=== PATIENT | female | born 1990 | race Caucasian/White ===

== ENCOUNTER 2023-12-28 10:04 | Outpatient (CLI) | payer BC, SELFPAY ==
[2023-12-28 10:29] VITALS: BP 139/75; PULSE 67
[2023-12-28 10:31] VITALS: BP 133/72; PULSE 62
[2023-12-28 10:33] LABS: Basophils Percent Auto 0.1 % (0.2-1.2); Eosinophils Percent Auto 0.3 % (0-4.4); Hematocrit 33.8 % (37.0-47.0); Immature Granulocyte Absolute 0.03 K/mm3 (0.00-0.031); Immature Granulocyte Percent A 0.3 % (0-0.5); Immature Platelet Fraction Pct 17.2 % (0.9-11.2); Lymphocytes Absolute Auto 2.34 K/mm3 (0.9-3.2); Lymphocytes Percent Auto 24.7 % (18.3-44.2); Mean Corpuscular HGB Conc 32.5 g/dl (32-36); Mean Corpuscular Hemoglobin 26.8 pg (26-34); Mean Corpuscular Volume 82.4 fl (80-100); Mean Platelet Volume 13.1 fl (7.4-10.4); Monocytes Absolute Auto 0.6 K/mm3 (0.1-0.6); Monocytes Percent Auto 6.1 % (2.6-8.5); Neutrophils Absolute Auto 6.5 K/mm3 (1.3-6.7); Neutrophils Percent Auto 68.5 % (45.5-73.1); Platelet Count Result 163 k/mm3 (150-375); Red Cell Distribution Width 15.1 % (11.5-14.5); White Blood Count 9.5 K/mm3 (4.5-10.0)
[2023-12-28 10:34] LABS: Appearance Urine Clear (Clear); Bilirubin Urine Negative (Negative); Blood Urine Negative (Negative); Color Urine Yellow (Yellow); Glucose Urine UA Negative (Negative); Ketones Urine Negative (Negative); Leukocyte Esterase Ur Negative LEU/UL (Negative); Nitrate Urine Negative (Negative); Protein Urine Negative (Negative); Specific Grav Ur 1.009 (1.001-1.035); Urobilinogen Urine 0.2 mg/dL (<2.0); pH Urine 6.5 (5.0-9.0)
[2023-12-28 10:38] LABS: Add Urine Microscopic? NO
[2023-12-28 10:40] LABS: Creatinine Urine 48.3 mg/dL; Total Protein Urine Random 9 mg/dL; Ur Ttl Prot Creatinine Ratio 0.19 mg/mg (0-0.20)
[2023-12-28 10:46] VITALS: BP 136/72; PULSE 69
[2023-12-28 10:57] LABS: Alanine Aminotransferase 13 U/L (6-35); Albumin Level 3.3 g/dL (3.5-5.1); Alkaline Phosphatase 86 U/L (38-126); Anion Gap 6 mmol/L (8-16); Aspartate Amino Transferase 17 U/L (14-36); Bilirubin,Total 0.2 mg/dL (0.2-1.3); Blood Urea Nitrogen 7 mg/dL (7-17); Calcium 9.2 mg/dL (8.4-10.2); Carbon Dioxide 21 mmol/L (22-30); Chloride 108 mmol/L (98-107); Estimated Glomerular Filt Rate > 60; Glucose 71 mg/dL (65-110); Potassium 3.7 mmol/L (3.4-5.0); Sodium 135 mmol/L (137-145); Uric Acid 5.5 mg/dL (2.5-7.5)
[2023-12-28 11:01] VITALS: BP 129/75; PULSE 73
[2023-12-28] MEDS: ACETAMINOPHEN 325 MG TABLET 650 MG PO (11:13)
[2023-12-28 11:14] VITALS: BP 133/72; PULSE 62; BMI 47.9
--- NOTE | 2023-12-28 11:19 | PC.NURSE ---
1105: RN informed CNM of patient's complains of right upper quadrant pain, blurred vision, and a headache relieved by Tylenol. RN reported lab results and blood pressures to CNM as well as Category one FHT. Orders to give Tylenol for patient's headache and discharge patient home with instructions on when to return to the hospital.
== END 2023-12-28 13:30 | disposition home or self-care (01) ==
LOC: ANHOBOP 10:08 → ANHOBPP 10:08
PROVIDERS: Visit Provider Advanced Practice Midwife
DX: O13.9 Gestational [pregnancy-induced] hypertension without significant proteinuria, unspecified trimester (principal); Z3A.00 Weeks of gestation of pregnancy not specified
CPT/HCPCS: 36415; 59025; 80053; 81003; 82570; 84156; 84550; 85025; 85055; 99199; A9270

== ENCOUNTER 2024-01-04 10:26 | Outpatient (CLI) | payer BC, SELFPAY ==
[2024-01-04] VITALS (41 sets, daily range): BP systolic 110–173; BP diastolic 67–140; PULSE 70–115; TEMP 36.8; BMI 49.1
--- NOTE | 2024-01-04 11:00 | OBADM ---
This patient, Lexi Best, admitted to the OB room OB Post 116 for observation. Patient/family oriented to hospital policies and general routines including ID bracelet, bed and alarms, visiting hours, pain management, procedures, bathroom and other care routines, personal items, smoking policy, room service/diet, and visiting hours. Patient/Family are encouraged to report perceived risks to care and to ask questions if they do not understand what they are told or what they should do.
[2024-01-04 11:38] LABS: Appearance Urine Clear (Clear); Bilirubin Urine Negative (Negative); Blood Urine Negative (Negative); Color Urine Yellow (Yellow); Glucose Urine UA Negative (Negative); Ketones Urine Negative (Negative); Leukocyte Esterase Ur Negative LEU/UL (Negative); Nitrate Urine Negative (Negative); Protein Urine Negative (Negative); Specific Grav Ur 1.013 (1.001-1.035)
[2024-01-04 11:40] LABS: Basophils Percent Auto 0.1 % (0.2-1.2); Eosinophils Absolute Auto 0.1 K/mm3 (0-0.3); Eosinophils Percent Auto 0.6 % (0-4.4); Hematocrit 34.5 % (37.0-47.0); Hemoglobin 10.9 g/dL (12.0-15.0); Immature Granulocyte Absolute 0.03 K/mm3 (0.00-0.031); Immature Granulocyte Percent A 0.3 % (0-0.5); Immature Platelet Fraction Pct 19.5 % (0.9-11.2); Lymphocytes Absolute Auto 1.71 K/mm3 (0.9-3.2); Lymphocytes Percent Auto 19.6 % (18.3-44.2); Mean Corpuscular HGB Conc 31.6 g/dl (32-36); Mean Corpuscular Hemoglobin 26.5 pg (26-34); Mean Corpuscular Volume 83.7 fl (80-100); Mean Platelet Volume 13.1 fl (7.4-10.4); Monocytes Absolute Auto 0.6 K/mm3 (0.1-0.6); Monocytes Percent Auto 6.7 % (2.6-8.5); Neutrophils Absolute Auto 6.3 K/mm3 (1.3-6.7); Neutrophils Percent Auto 72.7 % (45.5-73.1); Platelet Count Result 159 k/mm3 (150-375); Red Blood Count 4.12 M/mm3 (4.2-5.4); Red Cell Distribution Width 15.3 % (11.5-14.5); White Blood Count 8.7 K/mm3 (4.5-10.0)
[2024-01-04 11:42] LABS: Add Urine Microscopic? NO
--- NOTE | 2024-01-04 11:51 | PC.NURSE ---
Hedy Cruz notified of BP's, orders received.
[2024-01-04 11:55] LABS: Alanine Aminotransferase 13 U/L (6-35); Albumin Level 3.4 g/dL (3.5-5.1); Alkaline Phosphatase 98 U/L (38-126); Anion Gap 6 mmol/L (8-16); Aspartate Amino Transferase 17 U/L (14-36); Bilirubin,Total 0.4 mg/dL (0.2-1.3); Blood Urea Nitrogen 5 mg/dL (7-17); Calcium 9.1 mg/dL (8.4-10.2); Carbon Dioxide 23 mmol/L (22-30); Chloride 107 mmol/L (98-107); Creatinine Urine 73.2 mg/dL; Estimated Glomerular Filt Rate > 60; Glucose 73 mg/dL (65-110); Potassium 3.9 mmol/L (3.4-5.0); Sodium 136 mmol/L (137-145); Total Protein Urine Random 8 mg/dL; Ur Ttl Prot Creatinine Ratio 0.11 mg/mg (0-0.20)
[2024-01-04] MEDS: LABETALOL HCL 100 MG TABLET 200 MG PO (12:08)
--- NOTE | 2024-01-04 14:00 | PC.NURSE ---
S Anthony called in and BP's reviewed. Orders received.
[2024-01-04] MEDS: LABETALOL HCL INJ 100 MG/20 ML VIAL 20 MG IV PUSH (15:04)
--- NOTE | 2024-01-04 16:06 | PC.NURSE ---
Hedy Cruz called in and BP's reviewed, orders received.
[2024-01-04] MEDS: LABETALOL HCL 100 MG TABLET PO (16:22)
[2024-01-04 16:27] LABS: Glucose Point of Care 195 mg/dl (65-105)
--- NOTE | 2024-01-04 16:27 | PC.NURSE ---
Accu check 195, after checking glucose patient states that she ate the second half of her subway sandwich about 30 minutes ago. Will recheck sugar in 30 minutes.
[2024-01-04 17:04] LABS: Glucose Point of Care 179 mg/dl (65-105)
--- NOTE | 2024-01-04 18:04 | PM.IMHP ---
H&P: HPI History of Present Illness Date/Time: 01/04/24 18:04 Chief Complaint: at 34.6 weeks gestation, presented to office with elevated blood pressure, occasional romo, denies epigastric pain. IVF , complicated by depression, taking prozac daily, ADD adderall weaning in third trimester, GDMA-2, 55 units nph at night, obesity with hx bariatric procedure. pt currently resting comfortably. Review of Systems Review of Systems: All systems reviewed & are unremarkable except as noted in HPI and below PMFSH Family History Family History (System 01/04/24 @ 12:00 by Nalini Doherty) Other Diabetes mellitus Family history of malignant neoplasm Hypertension Social History Social History (System 01/04/24 @ 12:00 by Nalini Doherty) Smoking status: Never smoker Alcohol intake: current Meds Home Medications and Allergies Home Medications Medication Instructions Recorded Confirmed Type Novolin N FlexPen 55 units subcut HS 12/24/23 12/24/23 History dextroamphetamine-amphetamine 10 10 mg PO DAILY PRN Concentration 12/24/23 12/24/23 History mg tablet (Adderall) doxylamine succinate 25 mg tablet 25 mg PO HS PRN Sleep 12/24/23 12/24/23 History (Unisom (doxylamine)) ferrous sulfate 142 mg (45 mg 142 mg PO DAILY 12/24/23 12/24/23 History iron) tablet,extended release fluoxetine 10 mg tablet 10 mg PO DAILY 12/24/23 12/24/23 History vit no.95-ferrous 1 tablet PO DAILY 12/24/23 12/24/23 History fumarate 28 mg-folic acid 800 mcg tablet () pyridoxine (vitamin B6) 25 mg 25 mg PO DAILY 12/24/23 12/24/23 History tablet (Vitamin B-6) Allergies Allergy/AdvReac Type Severity Reaction Status Date / Time cephalexin Allergy Intermediate Rash Verified 01/04/24 12:00 Vital Signs Vital Signs - 24 hr 01/04/24 11:01 01/04/24 11:31 01/04/24 11:46 Pulse Rate 75 70 77 Blood Pressure 150/87 H 163/94 H 156/85 H 01/04/24 12:01 01/04/24 12:16 01/04/24 12:31 Pulse Rate 71 74 80 Blood Pressure 150/83 H 149/87 H 151/87 H 01/04/24 12:46 01/04/24 13:01 01/04/24 13:16 Pulse Rate 82 84 93 Blood Pressure 151/76 H 148/80 H 157/94 H 01/04/24 13:31 01/04/24 13:46 01/04/24 14:01 Pulse Rate 91 80 86 Blood Pressure 158/89 H 160/83 H 155/78 H 01/04/24 14:16 01/04/24 15:08 01/04/24 15:11 Pulse Rate 91 115 H 109 H Blood Pressure 173/140 H 142/73 H 145/85 H 01/04/24 15:21 01/04/24 15:31 01/04/24 15:41 Pulse Rate 112 H 107 H 99 Blood Pressure 143/81 H 155/81 H 152/85 H 01/04/24 15:51 01/04/24 16:01 01/04/24 16:11 Pulse Rate 92 89 92 Blood Pressure 151/88 H 154/92 H 147/94 H 01/04/24 16:21 01/04/24 16:31 01/04/24 16:41 Pulse Rate 105 H 103 H 102 H Blood Pressure 160/88 H 150/70 H 153/81 H 01/04/24 16:51 01/04/24 17:01 01/04/24 17:11 Pulse Rate 100 97 88 Blood Pressure 151/77 H 155/81 H 144/78 H 01/04/24 17:21 01/04/24 17:31 01/04/24 17:41 Pulse Rate 88 89 85 Blood Pressure 141/78 H 141/73 H 144/78 H 01/04/24 17:51 01/04/24 18:02 01/04/24 15:04 Pulse Rate 88 83 91 Blood Pressure 140/79 153/75 H 01/04/24 16:22 Pulse Rate 105 H Blood Pressure Exam Const: General: cooperative, healthy appearing and comfortable Chest: Chest palpation & inspection: normal inspection of the chest Resp: Effort & Inspection: normal respiratory effort Cardio: Rate: regular rate GI: Other: soft, gravid Skin: General skin exam: normal color Neuro: General: patient oriented x3 Extrem: Right lower extremity: edema Details: 2+ Left lower extremity: edema Details: 2+ Psych: Appearance: grossly normal H&P: Results Labs Labs: Short CBC 01/04/24 Range/Units 11:07 WBC 8.7 (4.5-10.0) K/mm3 Hgb 10.9 L (12.0-15.0) g/dL Hct 34.5 L (37.0-47.0) % Plt Count 159 (150-375) k/mm3 BMP 01/04/24 11:07 Sodium 136 L Potassium 3.9 Chloride 107 Carbon Dioxide 23 BUN 5 L Creatinine 0.50 L Glucose 73
[2024-01-04] MEDS: NIFEdipine 30 MG TAB.ER.24 PO (20:46)
[2024-01-04] MEDS: INSULIN HUMAN NPH (*BKC) 100 UNITS/ML 55 UNITS SUB-Q (20:46)
[2024-01-04] MEDS: ACETAMINOPHEN 500 MG TABLET 1000 MG PO (20:53)
[2024-01-04 20:54] LABS: Glucose Point of Care 79 mg/dl (65-105)
--- NOTE | 2024-01-04 21:49 | PC.NURSE ---
Spoke with OTF Yanez at 0947 regarding patient's last BP of 152/85 and recent NST with variables noted. Orders received to keep patient on monitor throughout the night. BP check q1hr.
[2024-01-05] VITALS (22 sets, daily range): BP systolic 129–158; BP diastolic 64–90; PULSE 82–97; RESP 16–18; TEMP 36.1–36.5; O2SAT 99–100
[2024-01-05] MEDS: ACETAMINOPHEN 500 MG TABLET 1000 MG PO ×3 (04:12→17:13)
[2024-01-05 05:32] LABS: Hematocrit 34.8 % (37.0-47.0); Immature Platelet Fraction Pct 19.7 % (0.9-11.2); Mean Corpuscular HGB Conc 31.6 g/dl (32-36); Mean Corpuscular Hemoglobin 26.7 pg (26-34); Mean Corpuscular Volume 84.5 fl (80-100); Mean Platelet Volume 12.7 fl (7.4-10.4); Platelet Count Result 156 k/mm3 (150-375); Red Blood Count 4.12 M/mm3 (4.2-5.4); Red Cell Distribution Width 15.4 % (11.5-14.5); White Blood Count 7.6 K/mm3 (4.5-10.0)
[2024-01-05 05:50] LABS: Alanine Aminotransferase 12 U/L (6-35); Albumin Level 3.5 g/dL (3.5-5.1); Alkaline Phosphatase 89 U/L (38-126); Anion Gap 5 mmol/L (8-16); Aspartate Amino Transferase 18 U/L (14-36); Bilirubin,Total 0.4 mg/dL (0.2-1.3); Blood Urea Nitrogen 6 mg/dL (7-17); Calcium 9.4 mg/dL (8.4-10.2); Carbon Dioxide 24 mmol/L (22-30); Chloride 108 mmol/L (98-107); Estimated CRCL calculation 208 ml/min; Estimated Glomerular Filt Rate > 60; Glucose 74 mg/dL (65-110); Potassium 3.6 mmol/L (3.4-5.0); Sodium 137 mmol/L (137-145); Uric Acid 5.3 mg/dL (2.5-7.5)
--- NOTE | 2024-01-05 07:58 | PC.NURSE ---
Dr. Aguilar at nurses station, reviewed tracing, BPs and labs. Plans to continue watching patient today to see how pt responds to procardia/labetalol regimen.
--- NOTE | 2024-01-05 08:13 | PM.OBPNVD ---
OB - PN: Subj Subjective Date/time seen: 01/05/24 08:13 33-year-old 1 at 35 weeks gestation with gestational diabetes and gestational hypertension. Patient presented for evaluation of elevated blood pressures and had some severe range blood pressures. The values were questioned. One value has some very atypical numbers. The morphology of her arm his unique and hard to get consistent blood pressures. There is a concern about severe preeclampsia given the elevated blood pressures on 2 occasions. There is question of their ability. Blood pressure been controlled. We have administered oral medications and blood pressures have been elevated but not severe range over the last 18 hours approximately. we are going to continue to monitor her today in the hospital and consider discharge later. At this time she is just gestational hypertensive likely. Her protein creatinine ratio was normal. OB - PN: Obj Data Labs 01/05/24 05:09 01/05/24 05:09 Labs: Laboratory Results - last 24 hr 01/04/24 01/04/24 01/04/24 11:07 16:24 17:01 WBC 8.7 RBC 4.12 L Hgb 10.9 L Hct 34.5 L MCV 83.7 MCH 26.5 MCHC 31.6 L RDW 15.3 H Plt Count 159 MPV 13.1 H Immature Gran % (Auto) 0.3 Neut % (Auto) 72.7 Lymph % (Auto) 19.6 Placer % (Auto) 6.7 Eos % (Auto) 0.6 Baso % (Auto) 0.1 L Lymph # (Auto) 1.71 Placer # (Auto) 0.6 Eos # (Auto) 0.1 Baso # (Auto) 0.0 Abs Immat Gran (auto) 0.03 Absolute Neuts (auto) 6.3 Absolute Nucleated RBC 0.0 Nucleated RBC % 0.0 % Immature Plt Fraction 19.5 H Sodium 136 L Potassium 3.9 Chloride 107 Carbon Dioxide 23 Anion Gap 6 L BUN 5 L Creatinine 0.50 L Estim Creat Clear Calc Not Reportable Estimated GFR > 60 Glucose 73 POC Capillary Glucose 195 H 179 H Uric Acid 5.0 Calcium 9.1 Total Bilirubin 0.4 AST 17 ALT 13 Alkaline Phosphatase 98 Total Protein 6.0 L Albumin 3.4 L Urine Color Yellow Urine Appearance Clear Urine pH 8.0 Ur Specific [place] 1.013 Urine Protein Negative Urine Glucose (UA) Negative Urine Ketones Negative Ur Blood (Man) Negative Urine Nitrate Negative Urine Bilirubin Negative Urine Urobilinogen 1.0 Leukocyte Esterase Rfl Negative U Random Total Protein 8 Urine Creatinine 73.2 Protein/Creat Ratio 2 0.11 01/04/24 01/05/24 20:44 05:09 WBC 7.6 RBC 4.12 L Hgb 11.0 L Hct 34.8 L MCV 84.5 MCH 26.7 MCHC 31.6 L RDW 15.4 H Plt Count 156 MPV 12.7 H Immature Gran % (Auto) Neut % (Auto) Lymph % (Auto) Placer % (Auto) Eos % (Auto) Baso % (Auto) Lymph # (Auto) Placer # (Auto) Eos # (Auto) Baso # (Auto) Abs Immat Gran (auto) Absolute Neuts (auto) Absolute Nucleated RBC Nucleated RBC % % Immature Plt Fraction 19.7 H Sodium 137 Potassium 3.6 Chloride 108 H Carbon Dioxide 24 Anion Gap 5 L BUN 6 L Creatinine 0.50 L Estim Creat Clear Calc 208 Estimated GFR > 60 Glucose 74 POC Capillary Glucose 79 Uric Acid 5.3 Calcium 9.4 Total Bilirubin 0.4 AST 18 ALT 12 Alkaline Phosphatase 89 Total Protein 6.0 L Albumin 3.5 Urine Color Urine Appearance Urine pH Ur Specific [place] Urine Protein Urine Glucose (UA) Urine Ketones Ur Blood (Man) Urine Nitrate Urine Bilirubin Urine Urobilinogen Leukocyte Esterase Rfl U Random Total Protein Urine Creatinine Protein/Creat Ratio 2 OB - PN A/P Assessment and Plan (1) Depression: Code(s): F32.A - Depression, unspecified Status: Acute (2) Gestational diabetes: Code(s): O24.419 - Gestational diabetes mellitus in , unspecified control Status: Acute (3) Obesity: Code(s): E66.9 - Obesity, unspecified Status: Acute (4) Gestational hypertension without significant proteinuria during
[2024-01-05 08:30] LABS: Glucose Point of Care 63 mg/dl (65-105)
[2024-01-05] MEDS: LABETALOL HCL 100 MG TABLET 300 MG PO (08:38)
[2024-01-05] MEDS: NIFEdipine 30 MG TAB.ER.24 PO (08:39)
[2024-01-05 09:45] LABS: Glucose Point of Care 123 mg/dl (65-105)
[2024-01-05 12:58] LABS: Glucose Point of Care 111 mg/dl (65-105)
--- NOTE | 2024-01-05 16:55 | PC.NURSE ---
Spoke with Dr. Aguilar at nurses station. Update given on pt status, BP, and headache. MD would like to try caffeine medication, orders received and confirmed. If headache is relieved, pt may go home. Suggesting excedrin tension headache OTC for patient to take at home. RN repeated info back to confirm.
[2024-01-05] MEDS: CAFFEINE 200 MG TABLET PO (17:13)
--- NOTE | 2024-01-05 17:49 | PC.NURSE ---
Pt states she feels much better after tylenol/caffeine combo, would like to go home.
== END 2024-01-05 18:05 ==
LOC: ANHOBOP 10:38 → ANHOBPP 10:39
PROVIDERS: Visit Provider Advanced Practice Midwife
DX: O13.3 Gestational [pregnancy-induced] hypertension without significant proteinuria, third trimester (principal); E66.9 Obesity, unspecified; O24.419 Gestational diabetes mellitus in pregnancy, unspecified control; Z31.83 Encounter for assisted reproductive fertility procedure cycle; F32.A Depression, unspecified; Z3A.00 Weeks of gestation of pregnancy not specified
CPT/HCPCS: 36415; 59025; 80053; 81003; 82570; 82948; 84156; 84550; 85025; 85027; 85055; 96374; 99199; A9270; G0378; G0379; J1815

== ENCOUNTER 2024-01-11 10:23 | Outpatient (CLI) | payer BC, SELFPAY ==
[2024-01-11] VITALS (14 sets, daily range): BP systolic 134–159; BP diastolic 84–107; PULSE 71–115; O2SAT 95–99
[2024-01-11 11:05] LABS: Basophils Percent Auto 0.2 % (0.2-1.2); Eosinophils Percent Auto 0.2 % (0-4.4); Hematocrit 34.8 % (37.0-47.0); Hemoglobin 11.1 g/dL (12.0-15.0); Immature Granulocyte Absolute 0.02 K/mm3 (0.00-0.031); Immature Granulocyte Percent A 0.2 % (0-0.5); Immature Platelet Fraction Pct 17.5 % (0.9-11.2); Lymphocytes Percent Auto 19.4 % (18.3-44.2); Mean Corpuscular HGB Conc 31.9 g/dl (32-36); Mean Corpuscular Hemoglobin 26.9 pg (26-34); Mean Corpuscular Volume 84.3 fl (80-100); Mean Platelet Volume 13.3 fl (7.4-10.4); Monocytes Absolute Auto 0.7 K/mm3 (0.1-0.6); Monocytes Percent Auto 6.5 % (2.6-8.5); Neutrophils Absolute Auto 7.6 K/mm3 (1.3-6.7); Neutrophils Percent Auto 73.5 % (45.5-73.1); Platelet Count Result 193 k/mm3 (150-375); Red Blood Count 4.13 M/mm3 (4.2-5.4); Red Cell Distribution Width 15.4 % (11.5-14.5); White Blood Count 10.3 K/mm3 (4.5-10.0)
[2024-01-11 11:06] LABS: Creatinine Urine 79.9 mg/dL; Total Protein Urine Random 11 mg/dL; Ur Ttl Prot Creatinine Ratio 0.14 mg/mg (0-0.20)
[2024-01-11 11:07] LABS: Appearance Urine Cloudy (Clear); Bacteria Urine None Seen /hpf; Bilirubin Urine Negative (Negative); Blood Urine Negative (Negative); Color Urine Yellow (Yellow); Glucose Urine UA Negative (Negative); Ketones Urine Negative (Negative); Leukocyte Esterase Ur Negative LEU/UL (Negative); Nitrate Urine Negative (Negative); Non Pathogenic Casts 0-2; Protein Urine Negative (Negative); RBC Urine 0-2 /hpf (0-2); Specific Grav Ur 1.013 (1.001-1.035); Squamous Epithelial Cell Urine Moderate /hpf (Few); WBC Urine 0-5 /hpf; pH Urine 6.5 (5.0-9.0)
[2024-01-11 11:08] LABS: Add Urine Microscopic? YES
[2024-01-11 11:14] LABS: Alanine Aminotransferase 14 U/L (6-35); Albumin Level 3.5 g/dL (3.5-5.1); Alkaline Phosphatase 97 U/L (38-126); Anion Gap 4 mmol/L (8-16); Aspartate Amino Transferase 18 U/L (14-36); Bilirubin,Total 0.4 mg/dL (0.2-1.3); Blood Urea Nitrogen 6 mg/dL (7-17); Calcium 9.4 mg/dL (8.4-10.2); Carbon Dioxide 21 mmol/L (22-30); Chloride 110 mmol/L (98-107); Estimated Glomerular Filt Rate > 60; Glucose 72 mg/dL (65-110); Potassium 4.2 mmol/L (3.4-5.0); Sodium 135 mmol/L (137-145); Uric Acid 5.8 mg/dL (2.5-7.5)
--- NOTE | 2024-01-11 11:26 | PC.NURSE ---
Called Melisa Crzu CNM to inform of BPs and lab results. JEEVAN verbalized understanding, states she will call back shortly.
[2024-01-11] MEDS: LABETALOL HCL 100 MG TABLET 300 MG PO (11:38)
--- NOTE | 2024-01-11 11:59 | PC.NURSE ---
pt called out stating she had blurry vision that came on abruptly along with some slight light-headedness. RN to report to provider shortly. Will check BG as well.
[2024-01-11 12:08] LABS: Glucose Point of Care 77 mg/dl (65-105)
--- NOTE | 2024-01-11 13:02 | PC.NURSE ---
This RN received call from Melisa Cruz CNM. RN informed CNM of blurry vision complaints correlating with low blood sugar. CNM verbalized understanding, states pt may go home on labetalol 300mg TID. RN repeated all orders back to confirm. No further orders given at this time.
== END 2024-01-11 13:20 | disposition home or self-care (01) ==
LOC: ANHOBOP 10:32 → ANHLDR 10:32
PROVIDERS: Visit Provider Advanced Practice Midwife
DX: O13.9 Gestational [pregnancy-induced] hypertension without significant proteinuria, unspecified trimester (principal); Z3A.00 Weeks of gestation of pregnancy not specified
CPT/HCPCS: 36415; 80053; 81001; 82570; 82948; 84156; 84550; 85025; 85055; 99199; A9270

== ENCOUNTER 2024-01-13 09:50 | Outpatient (CLI) | payer BC, SELFPAY ==
[2024-01-13 10:19] LABS: Eosinophils Percent Auto 0.3 % (0-4.4); Hematocrit 33.7 % (37.0-47.0); Immature Granulocyte Absolute 0.03 K/mm3 (0.00-0.031); Immature Granulocyte Percent A 0.3 % (0-0.5); Lymphocytes Absolute Auto 1.64 K/mm3 (0.9-3.2); Lymphocytes Percent Auto 16.6 % (18.3-44.2); Mean Corpuscular HGB Conc 32.6 g/dl (32-36); Mean Corpuscular Hemoglobin 27.3 pg (26-34); Mean Corpuscular Volume 83.6 fl (80-100); Monocytes Absolute Auto 0.6 K/mm3 (0.1-0.6); Monocytes Percent Auto 5.8 % (2.6-8.5); Neutrophils Absolute Auto 7.6 K/mm3 (1.3-6.7); Platelet Count Result 178 k/mm3 (150-375); Red Blood Count 4.03 M/mm3 (4.2-5.4); Red Cell Distribution Width 15.5 % (11.5-14.5); White Blood Count 9.9 K/mm3 (4.5-10.0)
[2024-01-13 10:21] VITALS: BP 129/76; PULSE 86
[2024-01-13 10:31] VITALS: BP 118/71; PULSE 93
[2024-01-13 10:34] LABS: Appearance Urine Cloudy (Clear); Bacteria Urine Rare /hpf; Bilirubin Urine Negative (Negative); Blood Urine Negative (Negative); Color Urine Dark Yellow (Yellow); Glucose Urine UA Negative (Negative); Ketones Urine Trace mg/dL (Negative); Leukocyte Esterase Ur Trace LEU/UL (Negative); Nitrate Urine Negative (Negative); Non Pathogenic Casts 0-2; Protein Urine 1+ mg/dL (Negative); RBC Urine 0-2 /hpf (0-2); Specific Grav Ur 1.031 (1.001-1.035); Squamous Epithelial Cell Urine Many /hpf (Few); WBC Urine 0-5 /hpf; pH Urine 5.5 (5.0-9.0)
[2024-01-13 10:35] LABS: Add Urine Microscopic? YES
[2024-01-13 10:38] LABS: Creatinine Urine 311.8 mg/dL; Total Protein Urine Random 9 mg/dL; Ur Ttl Prot Creatinine Ratio 0.03 mg/mg (0-0.20)
[2024-01-13 10:39] LABS: Alanine Aminotransferase 15 U/L (6-35); Albumin Level 3.5 g/dL (3.5-5.1); Alkaline Phosphatase 99 U/L (38-126); Anion Gap 8 mmol/L (8-16); Aspartate Amino Transferase 20 U/L (14-36); Bilirubin,Total 0.4 mg/dL (0.2-1.3); Blood Urea Nitrogen 11 mg/dL (7-17); Calcium 9.2 mg/dL (8.4-10.2); Carbon Dioxide 20 mmol/L (22-30); Chloride 107 mmol/L (98-107); Estimated Glomerular Filt Rate > 60; Glucose 104 mg/dL (65-110); Potassium 4.1 mmol/L (3.4-5.0); Sodium 135 mmol/L (137-145); Uric Acid 6.3 mg/dL (2.5-7.5)
[2024-01-13 10:45] VITALS: BP 130/71; PULSE 85
--- NOTE | 2024-01-13 10:48 | PC.NURSE ---
1048: RN phone CNM to inform her of patient's blood pressure, lab results, and FHT tracing. Orders to discharge patient home with preeclampsia precautions and instructions to come for her NST tomorrow.
[2024-01-13 10:57] VITALS: BP 117/71; PULSE 93
== END 2024-01-13 10:50 | disposition home or self-care (01) ==
LOC: ANHOBOP 09:55 → ANHOBPP 09:57
PROVIDERS: Visit Provider Advanced Practice Midwife
DX: O13.9 Gestational [pregnancy-induced] hypertension without significant proteinuria, unspecified trimester (principal); Z3A.00 Weeks of gestation of pregnancy not specified
CPT/HCPCS: 36415; 59025; 80053; 81001; 82570; 84156; 84550; 85025; 99199

== ENCOUNTER 2024-01-14 15:28 | Outpatient (RCR) | payer BC, SELFPAY ==
[2023-12-24 09:27] VITALS: BP 121/80; PULSE 74
[2023-12-24 09:55] VITALS: BP 121/80; PULSE 78
[2023-12-31 10:37] VITALS: BP 154/82
[2024-01-07 09:30] VITALS: BP 123/82; PULSE 97
== END 2024-03-23 23:59 | disposition home or self-care (01) ==
LOC: ANHOBOP 15:28
PROVIDERS: Visit Provider Advanced Practice Midwife
DX: O24.419 Gestational diabetes mellitus in pregnancy, unspecified control (principal); O26.893 Other specified pregnancy related conditions, third trimester; R03.0 Elevated blood-pressure reading, without diagnosis of hypertension; O16.3 Unspecified maternal hypertension, third trimester; Z3A.00 Weeks of gestation of pregnancy not specified
CPT/HCPCS: 59025; J2274

== ENCOUNTER 2024-01-19 16:49 | Inpatient (IN) | payer BC, SELFPAY ==
[2024-01-19] VITALS (14 sets, daily range): BP systolic 140–166; BP diastolic 70–104; PULSE 79–106; TEMP 36.4–36.6; BMI 48.2
--- NOTE | 2024-01-19 17:08 | P.PNAN_ITS ---
Anes - Eval Pre Procedure Procedure: labor epidural Date/Time: 01/19/24 17:08 Surgeon: stevie Preop Diagnosis: pain during labor Pre Op Diagnosis: IOL Patient Data Age: 33 Gender: F Height: Weight: Allergies Allergy/AdvReac Type Severity Reaction Status Date / Time cephalexin Allergy Intermediate Rash Verified 01/14/24 15:33 Home Medications Medication Instructions Recorded Confirmed Type Novolin N FlexPen 55 units subcut HS 12/24/23 01/11/24 History dextroamphetamine-amphetamine 10 10 mg PO DAILY PRN Concentration 12/24/23 01/11/24 History mg tablet (Adderall) doxylamine succinate 25 mg tablet 25 mg PO HS PRN Sleep 12/24/23 01/11/24 Histo ry (Unisom (doxylamine)) ferrous sulfate 142 mg (45 mg 142 mg PO DAILY 12/24/23 01/11/24 History iron) tablet,extended release fluoxetine 10 mg tablet 10 mg PO DAILY 12/24/23 01/11/24 History vit no.95-ferrous 1 tablet PO DAILY 12/24/23 01/11/24 History fumarate 28 mg-folic acid 800 mcg tablet () pyridoxine (vitamin B6) 25 mg 25 mg PO DAILY 12/24/23 01/04/24 History tablet (Vitamin B-6) nifedipine 30 mg tablet,extended 30 mg PO QAM 14 days #14 tabs 01/05/24 01/11/24 Rx release 24 hr (Procardia XL) labetalol 100 mg tablet 300 mg PO TID 01/11/24 01/11/24 History Patient hx anesthesia problems: none Family hx anesthesia problems: none Results Review: All pre-operative results and documents have been reviewed as part of the pre- operative evaluation. [facility] Past Medical History Medical History (Updated 01/19/24 @ 17:09 by Anita Vieira CRNA) Attention deficit disorder (ADD) in adult Family History Family History (Updated 01/14/24 @ 15:40 by Amy Bo RN) Mother Diabetes mellitus Family history of malignant neoplasm Hypertension Sibling Family history of malignant neoplasm Social History Social History (System 01/04/24 @ 12:00 by Nalini Doherty) Smoking status: Never smoker Alcohol intake: current Substance use: never Do You Feel Safe in your Home?: Yes Lack of Transportation: YES Lack of Food: Never True Current Housing: I Have Housing Concerned About Future Housing: No Difficulty Paying Gas/Electric Bills: No Difficulty Paying for Meds: No Currently Unemployed: No Education: High School Diploma/GED Difficulty w/ Childcare or Family Care: No Spiritual care concerns: No Exam Day of Procedure 01/19/24 17:08
--- NOTE | 2024-01-19 17:42 | LDADM ---
This patient, Lexi Best, was admitted to Labor/Delivery/Recovery 105 on 01/19/24 at 16:49. Plans for labor, pain management and were discussed with patient. Patient/family oriented to hospital policies and general routines including ID bracelet, bed and alarms, visiting hours, pain management, procedures, bathroom and other care routines, personal items, smoking policy, room service/diet and guest tray routines, infant security routines, and visiting hours. Patient/Family are encouraged to report perceived risks to care and to ask questions if they do not understand what they are told or what they should do. See OBIX for further documentation.
[2024-01-19 18:01] LABS: Basophils Percent Auto 0.1 % (0.2-1.2); Eosinophils Percent Auto 0.4 % (0-4.4); Hematocrit 31.7 % (37.0-47.0); Hemoglobin 10.5 g/dL (12.0-15.0); Immature Granulocyte Absolute 0.03 K/mm3 (0.00-0.031); Immature Granulocyte Percent A 0.3 % (0-0.5); Immature Platelet Fraction Pct 18.4 % (0.9-11.2); Lymphocytes Absolute Auto 2.17 K/mm3 (0.9-3.2); Lymphocytes Percent Auto 21.6 % (18.3-44.2); Mean Corpuscular HGB Conc 33.1 g/dl (32-36); Mean Corpuscular Hemoglobin 27.7 pg (26-34); Mean Corpuscular Volume 83.6 fl (80-100); Mean Platelet Volume 13.7 fl (7.4-10.4); Monocytes Absolute Auto 0.6 K/mm3 (0.1-0.6); Monocytes Percent Auto 6.2 % (2.6-8.5); Neutrophils Absolute Auto 7.2 K/mm3 (1.3-6.7); Neutrophils Percent Auto 71.4 % (45.5-73.1); Platelet Count Result 174 k/mm3 (150-375); Red Blood Count 3.79 M/mm3 (4.2-5.4); Red Cell Distribution Width 15.6 % (11.5-14.5)
[2024-01-19 18:09] LABS: Alanine Aminotransferase 16 U/L (6-35); Albumin Level 3.4 g/dL (3.5-5.1); Alkaline Phosphatase 97 U/L (38-126); Anion Gap 6 mmol/L (8-16); Aspartate Amino Transferase 21 U/L (14-36); Bilirubin,Total 0.3 mg/dL (0.2-1.3); Blood Urea Nitrogen 13 mg/dL (7-17); Calcium 9.5 mg/dL (8.4-10.2); Carbon Dioxide 20 mmol/L (22-30); Chloride 111 mmol/L (98-107); Estimated CRCL calculation 206 ml/min; Estimated Glomerular Filt Rate > 60; Glucose 81 mg/dL (65-110); Potassium 3.8 mmol/L (3.4-5.0); Sodium 137 mmol/L (137-145); Uric Acid 6.2 mg/dL (2.5-7.5)
--- NOTE | 2024-01-19 18:35 | PC.NURSE ---
Spoke with OTF Romero at 1827 regarding ordering patient's scheduled home medications to be administered inpatient during her stay. Patient states she would not like to take the adderall while she is here. Orders received to take blood sugars 1 hour post meals and q4 hours until in active labor, then q2hrs. Lurdes Cruz would like to be notified if blood sugars are over 150. Diabetic diet ordered. No other orders at this time.
[2024-01-19] MEDS: miSOPROStol 25 MCG TABLET 50 MCG PO ×2 (18:53→23:03)
[2024-01-19 19:30] LABS: Glucose Point of Care 152 mg/dl (65-105)
[2024-01-19] MEDS: LABETALOL HCL 100 MG TABLET 300 MG PO (21:46)
[2024-01-19] MEDS: INSULIN HUMAN NPH (*BKC) 100 UNITS/ML 55 UNITS SUB-Q (21:47)
[2024-01-19 23:09] LABS: Rapid Plasma Reagin Non-Reactive (NonReactive)
[2024-01-20] VITALS (368 sets, daily range): BP systolic 105–173; BP diastolic 49–112; PULSE 61–116; RESP 16–24; TEMP 36.2–36.8; O2SAT 91–100
[2024-01-20] MEDS: LABETALOL HCL INJ 100 MG/20 ML VIAL 20 MG IV PUSH (01:35)
[2024-01-20] MEDS: LACTATED RINGERS 1,000 ML 75 ML IV CONT ×3 (01:45→17:54)
[2024-01-20] MEDS: MAGNESIUM SULF 4 GM/WATER100ML 4 GM/100 ML BAG IVPB (01:45)
[2024-01-20] MEDS: LABETALOL HCL INJ 100 MG/20 ML VIAL 40 MG IV PUSH (01:58)
[2024-01-20] MEDS: MAGNESIUM SULF 20GM/WATER500ML 500 ML 50 MG IV CONT ×3 (02:31→21:05)
[2024-01-20] MEDS: miSOPROStol 25 MCG TABLET 50 MCG PO (03:05)
[2024-01-20 03:16] LABS: Glucose Point of Care 111 mg/dl (65-105)
[2024-01-20 03:18] LABS: Glucose Point of Care 70 mg/dl (65-105)
[2024-01-20] MEDS: LABETALOL HCL 100 MG TABLET 300 MG PO ×2 (05:45→12:03)
[2024-01-20 06:10] LABS: Glucose Point of Care 63 mg/dl (65-105)
[2024-01-20 06:36] LABS: Glucose Point of Care 76 mg/dl (65-105)
[2024-01-20] MEDS: OXYTOCIN 30 UNITS/NS 500 ML 30 UNITS/500 ML BAG IV CONT (08:57)
[2024-01-20] MEDS: FLUoxetine HCL 10 MG CAPSULE PO (10:02)
[2024-01-20] MEDS: NIFEdipine 30 MG TAB.ER.24 PO (10:02)
[2024-01-20 10:21] LABS: Glucose Point of Care 88 mg/dl (65-105)
--- NOTE | 2024-01-20 12:17 | PM.IMHP ---
H&P: HPI History of Present Illness Date/Time: 01/20/24 12:18 Chief Complaint: pt here for IOL, chronic HTN, GDMA-2, complicated by obesity, IVF, depression, ADHD, history of bariatric surgery. Pt has overnight developed preeclampsia with severe features, due to rising blood pressures. Started on magnesium sulfate overnight and is continuing labetalol 300mg TID and procardia 30 XL daily. Pt requires 55 units of NPH at hs Review of Systems Review of Systems: All systems reviewed & are unremarkable except as noted in HPI and below [facility] Past Medical History Medical History (Updated 01/20/24 @ 12:20 by Melisa Cruz CNM) Attention deficit disorder (ADD) in adult Family History Family History (Updated 01/14/24 @ 15:40 by Amy Bo RN) Mother Diabetes mellitus Family history of malignant neoplasm Hypertension Sibling Family history of malignant neoplasm Social History Social History (System 01/04/24 @ 12:00 by Nalini Doherty) Smoking status: Never smoker Alcohol intake: current Substance use: never Do You Feel Safe in your Home?: Yes Lack of Transportation: No Lack of Food: Never True Current Housing: I Have Housing Concerned About Future Housing: No Difficulty Paying Gas/Electric Bills: No Difficulty Paying for Meds: No Currently Unemployed: No Education: Bachelor's Degree Difficulty w/ Childcare or Family Care: No Spiritual care concerns: No Meds Home Medications and Allergies Home Medications Medication Instructions Recorded Confirmed Type Novolin N FlexPen 55 units subcut HS 12/24/23 01/19/24 History dextroamphetamine-amphetamine 10 10 mg PO DAILY PRN Concentration 12/24/23 01/19/24 History mg tablet (Adderall) doxylamine succinate 25 mg tablet 25 mg PO HS PRN Sleep 12/24/23 01/19/24 History (Unisom (doxylamine)) ferrous sulfate 142 mg (45 mg 142 mg PO DAILY 12/24/23 01/19/24 History iron) tablet,extended release fluoxetine 10 mg tablet 10 mg PO DAILY 12/24/23 01/19/24 History vit no.95-ferrous 1 tablet PO DAILY 12/24/23 01/19/24 History fumarate 28 mg-folic acid 800 mcg tablet () pyridoxine (vitamin B6) 25 mg 25 mg PO DAILY 12/24/23 01/04/24 History tablet (Vitamin B-6) nifedipine 30 mg tablet,extended 30 mg PO QAM 14 days #14 tabs 01/05/24 01/19/24 Rx release 24 hr (Procardia XL) labetalol 100 mg tablet 300 mg PO TID 01/11/24 01/19/24 History Allergies Allergy/AdvReac Type Severity Reaction Status Date / Time cephalexin Allergy Intermediate Rash Verified 01/14/24 15:33 Vital Signs Vital Signs - 24 hr 01/19/24 17:31 01/19/24 17:46 01/19/24 18:01 Temperature Pulse Rate 88 86 83 Respiratory Rate Blood Pressure 158/98 H 148/84 H 153/90 H Pulse Oximetry Oxygen Delivery 01/19/24 18:31 01/19/24 19:01 01/19/24 20:03 Temperature 36.4 C Pulse Rate 102 H 94 93 Respiratory Rate Blood Pressure 151/74 H 156/83 H 144/76 H Pulse Oximetry Oxygen Delivery 01/19/24 21:42 01/19/24 22:01 01/19/24 22:34 Temperature Pulse Rate 79 94 88 Respiratory Rate Blood Pressure 153/98 H 166/104 H 140/82 Pulse Oximetry Oxygen Delivery 01/19/24 22:30 01/19/24 23:02 01/19/24 21:00 Temperature 36.6 C 36.4 C L Pulse Rate 106 H Respiratory Rate Blood Pressure 146/70 H Pulse Oximetry Oxygen Delivery 01/20/24 00:01 01/19/24 17:41 01/19/24 18:03 Temperature Pulse Rate 75 Respiratory Rate Blood Pressure 147/69 H Pulse Oximetry Oxygen Delivery Room Air Room Air 01/19/24 21:46 01/20/24 01:03 01/20/24 01:21 Temperature Pulse Rate 79 68 67 Respiratory Rate Blood Pressure 161/102 H 167/94 H Pulse Oximetry Oxygen Delivery 01/20/24 01:23 01/20/24 01:38 01/20/24 01:43 Temperature Pulse Rate 76 61 72 Respiratory Rate Blood Pressure 171/101 H 173/92 H 166/104 H Pulse Oximetry Oxygen Delivery
[2024-01-20 14:27] LABS: Glucose Point of Care 77 mg/dl (65-105)
[2024-01-20 16:56] LABS: Glucose Point of Care 73 mg/dl (65-105)
[2024-01-20 18:06] LABS: Glucose Point of Care 80 mg/dl (65-105)
[2024-01-20 22:08] LABS: Glucose Point of Care 71 mg/dl (65-105)
[2024-01-20 23:18] LABS: Glucose Point of Care 96 mg/dl (65-105)
[2024-01-21] VITALS (57 sets, daily range): BP systolic 117–154; BP diastolic 62–102; PULSE 68–107; RESP 16–20; TEMP 36.2–37; O2SAT 91–99
[2024-01-21] MEDS: AZITHROMYCIN 500 MG/NS 250 ML 500 MG/250 ML BAG 250 MG IVPB (00:50)
--- NOTE | 2024-01-21 00:51 | PM.IMHP ---
H&P: HPI History of Present Illness Date/Time: 01/21/24 00:51 Chief Complaint: Labor Narrative: 33-year-old primiparous female at 37 weeks with gestational hypertension and insulin-dependent gestational diabetes. She was induced at 37 weeks. Proceeded to 7 cm dilation. Now, labor has stalled. She has remained 7 cm for several hours. There is nonreassuring heart tones with late heart tone decelerations. We will proceed to immediately. The patient understands the details of the procedure. The procedure has been explained in detail. She understands the risks. She understands that injuries may occur that result in hospitalization, more surgery, and severe illness. She understands risk of hemorrhage and infection. She denies any chest pain or shortness of breath. She denies any nausea, vomiting, fever, chills. Is completed informed consent process and Is ready to proceed. Review of Systems Review of Systems: All systems reviewed & are unremarkable except as noted in HPI and below Constitutional: Constitutional: Denies chills, Denies fatigue, Denies fever(s) and Denies weakness Eyes: Eyes: Denies blurry vision, Denies change in vision, Denies loss of peripheral vision, Denies loss of vision, Denies other visual disturbances and Denies eye pain ENT: Denies vertigo, Denies dizziness, Denies hearing loss, Denies mouth pain, Denies nasal obstruction, Denies neck mass and Denies neck pain Cardiovascular: Cardiovascular: Denies chest pain, Denies diaphoresis, Denies syncope, Denies leg edema and Denies dyspnea Respiratory: Respiratory: Denies chest congestion, Denies cough, Denies hemoptysis, Denies dyspnea and Denies wheezing Gastrointestinal: Gastrointestinal: Denies abdominal pain, Denies constipation, Denies diarrhea, Denies nausea and Denies vomiting Genitourinary: Genitourinary: Denies hematuria, Denies change in libido, Denies nocturia, Denies genital lesions, Denies flank pain and Denies urinary urgency Musculoskeletal: Musculoskeletal: Denies abnormal gait, Denies back pain, Denies myalgias, Denies arthralgias, Denies joint swelling, Denies muscle weakness and Denies neck pain Integumentary/Breasts: Skin/Breast: Denies swelling, Denies breast pain, Denies breast mass, Denies dry skin, Denies nipple discharge, Denies unusual bruising and Denies jaundice Neurologic: Denies Neuro-related abnormal movements, Denies Abnormal speech present, Denies abnormal gait, Denies behavioral changes, Denies confusion, Denies vertigo, Denies dizziness, Denies syncope, Denies loss of vision, Denies memory loss, Denies convulsions and Denies weakness Psychiatric: Psychiatric: Denies abnormal sleep pattern, Denies behavioral changes, Denies change in libido, Denies confusion, Denies depression, Denies anhedonia and Denies memory loss Endocrine: Endocrine: Reports no additional endocrine complaints, Denies change in libido and Denies fatigue Hematologic/Lymphatic: Hematologic/Lymphatic: Reports no additional hematologic/lymphatic complaints Allergic/Immunologic: Allergic/Immunologic: Reports no additional allergic/immunologic complaints and Denies wheezing PMFSH Past Medical History Medical History (Updated 01/20/24 @ 12:20 by Melisa Cruz CNM) Attention deficit disorder (ADD) in adult Family History Family History (Updated 01/14/24 @ 15:40 by Amy Bo RN) Mother Diabetes mellitus Family history of malignant neoplasm Hypertension Sibling Family history of malignant neoplasm Social History Social History (System 01/04/24 @ 12:00 by Nalini Doherty) Smoking status: Never smoker Alcohol intake: current Substance use: never Do You Feel Safe in your Home?: Yes Lack of Transportation: No Lack of Food: Never True Current Housing: I Have Housing Concerned About Future Housing: No Difficulty Paying Gas/Electric Bills: No Difficulty Paying for Meds: No Currently Unemployed: No E
[2024-01-21] MEDS: FAMOTIDINE 20 MG/2 ML VIAL IV PUSH (00:53)
[2024-01-21] MEDS: ACETAMINOPHEN 500 MG TABLET 1000 MG PO (00:53)
[2024-01-21] MEDS: ONDANSETRON INJ 4 MG/2 ML VIAL IV PUSH (00:53)
--- NOTE | 2024-01-21 00:59 | WPDHPUPDATE1 ---
History and Physical Update Update Date/Time: 01/21/24 00:59 History and Physical has been reviewed, including an updated exam of the patient. There are NO changes in the patient's condition. Risks, benefits, and alternatives have been discussed and questions answered. Patient agrees to proceed with procedure.
[2024-01-21] MEDS: CLINDAMYCIN 900 MG/D5W 50 ML 900 MG/50 ML PIGGYBACK 50 MG IVPB (01:05)
--- NOTE | 2024-01-21 02:12 | W.PM.OBCSD ---
OB - Delivery Note Procedure Delivery date: 01/21/24 Pre-op diagnosis: Arrest of Dilation and Preeclampsia w severe features Post-op Diagnosis: Same Induction method: AROM and Per Pitocin Protocol Delivery monitor: Internal FHT and Internal Uterine Procedure Performed: Primary Surgeon: Ronald Aguilar MD Anesthesia type: Epidural Description of Procedure/Findings: The patient was taken the operating room.? She was prepped and draped in dorsal supine position with a leftward tilt.? This was done after spinal anesthetic was applied.? A low-transverse skin incision was made and carried down till of the fascia with the knife.? The fascial incision was made with the knife.? The fascial incision was extended laterally with Adams scissors.? The fascia was tented upward superiorly and inferiorly the rectus muscles were dissected off bluntly.? The rectus muscles were the midline.? The preperitoneal fat and peritoneum were dissected open bluntly at the superior aspect of the rectus muscles.? The peritoneal incision was extended superior and inferior with good position of bladder.? The uterine incision was made with a scalpel down to the level of the amniotic cavity.? The amniotic cavity was entered bluntly.? The infant was delivered.? The cord was clamped and cut and the infant was handed off to waiting pediatric staff.? Cord bloods were obtained.? The placenta was removed manually.? The uterus was exteriorized.? The uterus was cleared of all clots, debris and membranes.? The uterus was closed in 0 Vicryl running lock fashion.? An imbricating over a was placed along the incision line as well.? The uterus was returned to the abdomen.? The gutters were cleared of all clots and debris.? The fascia was closed with 0 Vicryl running fashion.? The subcutaneous tissue was irrigated pinpoint bleeders were cauterized.? The skin was closed with subcuticular absorbable braydon.? The skin incision line was covered with glue.? The patient tolerated the procedure well.? She has taken recovery room in stable condition.? Sponge lap and needle counts were correct x2.? Urine Output: 200 Baby Weeks of gestation at delivery: 37
[2024-01-21] MEDS: fentaNYL CITRATE INJ (*CRX) 100 MCG/2 ML VIAL 50 MCG IV PUSH (03:26)
[2024-01-21] MEDS: fentaNYL CITRATE INJ (*CRX) 100 MCG/2 ML VIAL IV PUSH (04:21)
[2024-01-21] MEDS: LACTATED RINGERS 1,000 ML 75 ML IV CONT ×2 (05:05→21:18)
[2024-01-21] MEDS: OXYTOCIN 30 UNITS/NS 500 ML 30 UNITS/500 ML BAG 125 UNITS IV CONT (05:05)
--- NOTE | 2024-01-21 05:30 | OBPPTRN ---
Patient transferred to post room #279 via (wheelchair). Support person present. Oriented to unit, room, information board, rooming in, admission packet and security measures. Patient verbalizes understanding.
--- NOTE | 2024-01-21 07:15 | OBPPTRN ---
Patient transferred to post room #279 via (wheelchair ). Support person present. Oriented to unit, room, information board, rooming in, admission packet and security measures. Patient verbalizes understanding.
[2024-01-21] MEDS: ACETAMINOPHEN 325 MG TABLET 650 MG PO ×3 (08:05→20:15)
[2024-01-21] MEDS: KETOROLAC 15 MG/ML VIAL (*BKC) IV PUSH ×3 (08:05→20:15)
[2024-01-21] MEDS: SIMETHICONE 80 MG TAB.CHEW PO ×3 (08:06→17:13)
[2024-01-21] MEDS: MAGNESIUM SULF 20GM/WATER500ML 500 ML 50 MG IV CONT ×2 (08:09→18:31)
[2024-01-21] MEDS: NIFEdipine 30 MG TAB.ER.24 PO (08:30)
[2024-01-21] MEDS: DOCUSATE SODIUM 100 MG CAPSULE PO ×2 (08:30→17:13)
[2024-01-21] MEDS: MULTIVIT/MIN/PREN/FOL AC/IRON TABLET 1 TAB PO (08:30)
[2024-01-21] MEDS: LABETALOL HCL 100 MG TABLET 300 MG PO ×2 (08:31→14:20)
[2024-01-21] MEDS: FLUoxetine HCL 10 MG CAPSULE PO (08:33)
--- NOTE | 2024-01-21 09:10 | PM.OBPNVD ---
OB - PN: Subj Subjective Date/time seen: 01/21/24 09:10 Interval history: pp day 1 preeclampsia with severe features, magnesium sulfate x24 GDMA-2 doing well s/p primary section pain managed OB - PN: Obj Data Labs 01/19/24 17:50 01/19/24 17:50 Labs: Laboratory Results - last 24 hr 01/20/24 01/20/24 01/20/24 10:04 14:23 16:54 POC Capillary Glucose 88 77 73 01/20/24 01/20/24 01/20/24 18:04 21:14 23:13 POC Capillary Glucose 80 71 96 OB - PN A/P Plan day: 1 Comments: magnesium sulfate x 24 Time Spent With Patient Time: Total time spent is greater than 50% in coordination of care (as documented) at patient's floor/unit and/or counseling patient: Review of Systems Review of Systems: All systems reviewed & are unremarkable except as noted in HPI and below Exam Const: General: cooperative and healthy appearing Chest: Chest palpation & inspection: normal inspection of the chest Resp: Effort & Inspection: normal respiratory effort Skin: General skin exam: normal color Neuro: General: patient oriented x3 Extrem: Right lower extremity: edema Left lower extremity: edema
[2024-01-21] MEDS: LABETALOL HCL 100 MG TABLET PO (22:38)
[2024-01-21] MEDS: HYDROcodone/acetaminophen (*CRX) 10-325 MG TABLET 1 TAB PO (22:47)
[2024-01-22] VITALS (13 sets, daily range): BP systolic 130–144; BP diastolic 66–89; PULSE 93–108; RESP 16–18; TEMP 36.1–37.1; O2SAT 90–99
[2024-01-22] MEDS: LIDOCAINE 5% PATCH 1 PATCH TRANSDERM (01:41)
[2024-01-22] MEDS: ACETAMINOPHEN 325 MG TABLET 650 MG PO ×2 (02:02→12:31)
[2024-01-22] MEDS: KETOROLAC 15 MG/ML VIAL (*BKC) IV PUSH (02:03)
[2024-01-22] MEDS: HYDROcodone/acetaminophen (*CRX) 5-325 MG TABLET 1 TAB PO (04:17)
[2024-01-22 05:26] LABS: Basophils Percent Auto 0.3 % (0.2-1.2); Eosinophils Percent Auto 0.3 % (0-4.4); Hematocrit 31.1 % (37.0-47.0); Lymphocytes Absolute Auto 0.39 K/mm3 (0.9-3.2); Lymphocytes Percent Auto 13.2 % (18.3-44.2); Mean Corpuscular HGB Conc 32.2 g/dl (32-36); Mean Corpuscular Hemoglobin 27.4 pg (26-34); Mean Corpuscular Volume 85.2 fl (80-100); Mean Platelet Volume 12.4 fl (7.4-10.4); Monocytes Absolute Auto 0.2 K/mm3 (0.1-0.6); Monocytes Percent Auto 7.1 % (2.6-8.5); Neutrophils Absolute Auto 2.3 K/mm3 (1.3-6.7); Neutrophils Percent Auto 79.1 % (45.5-73.1); Platelet Count Result 150 k/mm3 (150-375); Red Blood Count 3.65 M/mm3 (4.2-5.4); Red Cell Distribution Width 15.8 % (11.5-14.5)
[2024-01-22] MEDS: DOCUSATE SODIUM 100 MG CAPSULE PO ×2 (06:54→15:52)
[2024-01-22] MEDS: LABETALOL HCL 100 MG TABLET PO ×4 (06:54→22:05)
[2024-01-22] MEDS: MULTIVIT/MIN/PREN/FOL AC/IRON TABLET 1 TAB PO (06:55)
[2024-01-22] MEDS: SIMETHICONE 80 MG TAB.CHEW PO ×3 (06:55→15:52)
--- NOTE | 2024-01-22 07:04 | PM.OBPNVD ---
OB - PN: Subj Subjective Date/time seen: 01/22/24 07:04 Interval history: pp day 2 preeclampsia with severe features GDMA-2 doing well s/p primary section flatus present pain managed OB - PN: Obj Data Labs 01/22/24 05:21 01/19/24 17:50 Labs: Laboratory Results - last 24 hr 01/22/24 05:21 WBC 3.0 L RBC 3.65 L Hgb 10.0 L Hct 31.1 L MCV 85.2 MCH 27.4 MCHC 32.2 RDW 15.8 H Plt Count 150 MPV 12.4 H Immature Gran % (Auto) 0.0 Neut % (Auto) 79.1 H Lymph % (Auto) 13.2 L [place] % (Auto) 7.1 Eos % (Auto) 0.3 Baso % (Auto) 0.3 Lymph # (Auto) 0.39 L [place] # (Auto) 0.2 Eos # (Auto) 0.0 Baso # (Auto) 0.0 Abs Immat Gran (auto) 0.00 Absolute Neuts (auto) 2.3 Absolute Nucleated RBC 0.000 Nucleated RBC % 0.0 OB - PN A/P Plan day: 2 Plan: routine care Time Spent With Patient Time: Total time spent is greater than 50% in coordination of care (as documented) at patient's floor/unit and/or counseling patient: Review of Systems Review of Systems: All systems reviewed & are unremarkable except as noted in HPI and below Exam Const: General: cooperative, healthy appearing and comfortable Resp: Effort & Inspection: normal respiratory effort Cardio: Rate: regular rate GI: Other: incision CDI Neuro: General: patient oriented x3
[2024-01-22] MEDS: NIFEdipine 30 MG TAB.ER.24 PO (08:34)
[2024-01-22] MEDS: FLUoxetine HCL 10 MG CAPSULE PO (08:34)
[2024-01-22] MEDS: HYDROcodone/acetaminophen (*CRX) 10-325 MG TABLET 1 TAB PO ×3 (08:35→21:00)
--- NOTE | 2024-01-22 09:13 | WPDANLDPN2 ---
Anes-Prog Note L&D Date/Time: 01/22/24 09:13 Comfortable throughout: labor and section Neuraxial method: epidural Epidural/Spinal procedure site: clean & non-tender Neuro status: Neuro function grossly intact. Cardiovascular status: normal Respiratory status: normal Airway patency: baseline Mental status: baseline Post-Op hydration status: normal Vital Signs: Last Vital Signs Temp 37.1 C 01/22/24 07:58 Pulse 100 01/22/24 07:58 Resp 18 01/22/24 07:58 BP 130/75 01/22/24 07:58 Pulse Ox 96 01/22/24 07:58 O2 Del Method Room Air 01/22/24 07:06 Pain score (VAS): 2/10 I/O: Intake & Output 01/21/24 01/22/24 01/22/24 23:59 07:59 15:59 Intake Total 975 750 Output Total 1450 2250 Balance -475 -1500 Post-procedural complaints: none Patient feedback: Patient satisfied with anesthetic care.
--- NOTE | 2024-01-22 09:13 | WPDANLDNPN2 ---
Anes-Prog Note L&D-Neuraxial Date/Time: 01/22/24 09:13 Neuraxial medications: epidural PF morphine Opiod-related complaints: none Patient feedback: Patient satisfied with post-operative pain management.
[2024-01-23] VITALS (9 sets, daily range): BP systolic 142–155; BP diastolic 83–93; PULSE 70–100; RESP 16–18; TEMP 36.2–36.7; O2SAT 95–99
[2024-01-23] MEDS: HYDROcodone/acetaminophen (*CRX) 10-325 MG TABLET 1 TAB PO ×6 (00:38→18:52)
[2024-01-23] MEDS: ACETAMINOPHEN 325 MG TABLET 650 MG PO ×2 (00:38→18:54)
[2024-01-23 05:18] LABS: Basophils Percent Auto 0.2 % (0.2-1.2); Eosinophils Absolute Auto 0.1 K/mm3 (0-0.3); Eosinophils Percent Auto 2.3 % (0-4.4); Hematocrit 28.2 % (37.0-47.0); Hemoglobin 8.4 g/dL (12.0-15.0); Immature Granulocyte Absolute 0.02 K/mm3 (0.00-0.031); Immature Granulocyte Percent A 0.5 % (0-0.5); Lymphocytes Absolute Auto 1.63 K/mm3 (0.9-3.2); Lymphocytes Percent Auto 36.9 % (18.3-44.2); Mean Corpuscular HGB Conc 29.8 g/dl (32-36); Mean Corpuscular Hemoglobin 27.2 pg (26-34); Mean Corpuscular Volume 91.3 fl (80-100); Mean Platelet Volume 12.6 fl (7.4-10.4); Monocytes Absolute Auto 0.4 K/mm3 (0.1-0.6); Monocytes Percent Auto 9.7 % (2.6-8.5); Neutrophils Absolute Auto 2.2 K/mm3 (1.3-6.7); Neutrophils Percent Auto 50.4 % (45.5-73.1); Platelet Count Result 155 k/mm3 (150-375); Red Blood Count 3.09 M/mm3 (4.2-5.4); Red Cell Distribution Width 15.9 % (11.5-14.5); White Blood Count 4.4 K/mm3 (4.5-10.0)
[2024-01-23] MEDS: LABETALOL HCL 100 MG TABLET PO ×2 (05:46→12:54)
[2024-01-23] MEDS: MULTIVIT/MIN/PREN/FOL AC/IRON TABLET 1 TAB PO (08:52)
[2024-01-23] MEDS: NIFEdipine 30 MG TAB.ER.24 PO (08:52)
[2024-01-23] MEDS: SIMETHICONE 80 MG TAB.CHEW PO ×3 (08:52→15:59)
[2024-01-23] MEDS: DOCUSATE SODIUM 100 MG CAPSULE PO ×2 (08:52→18:54)
[2024-01-23] MEDS: FLUoxetine HCL 10 MG CAPSULE PO (08:53)
--- NOTE | 2024-01-23 09:14 | P.PNOB_ITS ---
OB - PN: Subj Subjective Date/time seen: 01/23/24 09:14 Interval history: pp day 2 s/p PLTCS for preeclampsia with severe features and GDMA-2 flatus present pain controlled emptying bladder without issue would like to d/c home today OB - PN: Obj Data Labs 01/23/24 05:12 01/19/24 17:50 Labs: Laboratory Results - last 24 hr 01/23/24 05:12 WBC 4.4 L RBC 3.09 L Hgb 8.4 L Hct 28.2 L MCV 91.3 D MCH 27.2 MCHC 29.8 L RDW 15.9 H Plt Count 155 MPV 12.6 H Immature Gran % (Auto) 0.5 Neut % (Auto) 50.4 Lymph % (Auto) 36.9 [place] % (Auto) 9.7 H Eos % (Auto) 2.3 Baso % (Auto) 0.2 Lymph # (Auto) 1.63 [place] # (Auto) 0.4 Eos # (Auto) 0.1 Baso # (Auto) 0.0 Abs Immat Gran (auto) 0.02 Absolute Neuts (auto) 2.2 Absolute Nucleated RBC 0.000 Nucleated RBC % 0.0 OB - PN A/P Assessment and Plan (1) Preeclampsia: Code(s): O14.90 - Unspecified pre-eclampsia, unspecified trimester Status: Acute Assessment and Plan: BPs 140s/70s-80s Continue labetalol 300 TID and procardia XL 30 daily Severe features reviewed with patient as well as BP parameters RTC 1 week for BP and incision check (2) Gestational diabetes: Qualifiers: Gestational diabetes mellitus control: insulin-controlled Trimester: unspecified trimester Qualified Code(s): O24.414 - Gestational diabetes mellitus in , insulin controlled Code(s): O24.419 - Gestational diabetes mellitus in , unspecified control Status: Acute Assessment and Plan: - stop accuchecks and insulin - 2h GTT at 6 weeks PP (3) S/P section: Code(s): Z98.891 - History of uterine scar from previous surgery Status: Acute Plan day: 2 Plan: discharge home Time Spent With Patient Time: Total time spent is greater than 50% in coordination of care (as documented) at patient's floor/unit and/or counseling patient: Review of Systems Review of Systems: All systems reviewed & are unremarkable except as noted in HPI and below Exam Const: General: cooperative, healthy appearing and comfortable Resp: Effort & Inspection: normal respiratory effort Cardio: Rate: regular rate GI: Other: incision CDI Neuro: General: patient oriented x3
[2024-01-23] MEDS: LABETALOL HCL 100 MG TABLET 200 MG PO (20:46)
[2024-01-24] VITALS (8 sets, daily range): BP systolic 138–154; BP diastolic 80–100; PULSE 70–104; RESP 16–18; TEMP 36.3–36.8; O2SAT 96–100
[2024-01-24] MEDS: HYDROcodone/acetaminophen (*CRX) 10-325 MG TABLET 1 TAB PO ×4 (00:17→13:31)
[2024-01-24] MEDS: LABETALOL HCL 100 MG TABLET 200 MG PO ×2 (05:03→13:30)
--- NOTE | 2024-01-24 05:26 | PC.NURSE ---
01/24/2024 at 0418. I entered mother's room and she was standing at the bedside holding baby and swaying side to side. I've been trying to get him to calm down and be happy for the past 2 hrs. Lexi then gently put baby back in the crib and sat down to have her blood pressure taken. 154/100 was obtained. I asked mother to lay down and try and get some rest that I will be coming back in the room shortly and check on her. (Mother is alone in the room as her significant other went home for the night.) Mother agreed to let baby go to the nursery to allow her rest. 01/24/2024 at 0505 BP 150/98; 200 mg of Labetalol p.o. given at this time.
[2024-01-24] MEDS: ACETAMINOPHEN 325 MG TABLET 650 MG PO ×2 (05:46→10:10)
--- NOTE | 2024-01-24 05:53 | PC.NURSE ---
01/15/2024 at 0549 BP 147/90 with patient sitting high fowlers.
--- NOTE | 2024-01-24 08:55 | PM.OBPNVD ---
OB - PN: Subj Subjective Date/time seen: 01/24/24 08:55 Interval history: pp day 2 s/p PLTCS for preeclampsia with severe features and GDMA-2 flatus present pain controlled emptying bladder without issue would like to d/c home today Patient comments: no complaints, pain well controlled, incisional pain, tolerating diet and flatus present OB - PN: Obj Data Labs 01/23/24 05:12 01/19/24 17:50 OB - PN A/P Plan day: 3 Plan: routine care, discharge home and other Comments: Incision check in one week. Given precautions Time Spent With Patient Time: Total time spent is greater than 50% in coordination of care (as documented) at patient's floor/unit and/or counseling patient: Exam Const: General: comfortable, no acute distress and alert Resp: Effort & Inspection: normal respiratory effort Auscultation: no crackles, no rales and no rhonchi Cardio: Rate: regular rate Heart sounds: no click, no murmurs and no rubs GI: Inspection: non-distended GI Palp: No Tenderness to palpation present (GI) Auscultation: normal bowel sounds Other: Incision - CDI Extrem: General: normal to inspection, no pedal edema and no calf tenderness
--- NOTE | 2024-01-24 08:56 | PM.OBDSVD ---
DS: Admitting Diagnosis Discharge Date January 24, 2024 Admitting Diagnosis preeclampsia, gestational diabetes, term DS: Discharge Diagnosis Discharge Diagnosis (1) Preeclampsia: Code(s): O14.90 - Unspecified pre-eclampsia, unspecified trimester Status: Acute (2) Gestational diabetes: Qualifiers: Gestational diabetes mellitus control: insulin-controlled Trimester: unspecified trimester Qualified Code(s): O24.414 - Gestational diabetes mellitus in , insulin controlled Code(s): O24.419 - Gestational diabetes mellitus in , unspecified control Status: Acute OB - DS: Summary OB Procedures : PIH Mgmt OB Procedures Intrapartum: OB Procedures: : None Peripartum Data Procedures: Procedures Operation Date: 01/21/24 00:40 Actual Procedure Side Surgeon p Section Bilateral Ronald Aguilar MD Time Spent with Patient Time attestation: Total time spent providing and/or coordinating discharge services: DS: Data Data Completed and Pending Pending studies at discharge: Pending at discharge 01/21/24 02:43 Surgical [PTH] Routine Discharge Plan Discharge Consulting providers: Melisa Cruz Discharging Clinician: Ronald Aguilar Patient Disposition: Home, Self-Care Activity: pelvic rest Diet: regular Patient Instructions: Antibiotic Form Stand Alone Forms: General Discharge Information Follow-up/Referrals: Ronald Aguilar MD [Physician] - Discharge Medications: New hydrocodone-acetaminophen 5-325 mg tablet 1 tablet PO Q4H PRN (Reason: pain) Qty: 25 0RF Continued pyridoxine (vitamin B6) [Vitamin B-6] 25 mg Tablet 25 mg PO DAILY dextroamphetamine-amphetamine [Adderall] 10 mg Tablet 10 mg PO DAILY PRN (Reason: Concentration) Patient Comments: as needed fluoxetine 10 mg Tablet 10 mg PO DAILY Unisom (doxylamine) 25 mg Tablet 25 mg PO HS PRN (Reason: Sleep) Slow Fe 142 mg (45 mg iron) Tablet Extended Release 142 mg PO DAILY PNV [id number] fumarate-FA [] 28 mg iron- 800 mcg Tablet 1 tablet PO DAILY Novolin N FlexPen 55 units subcut HS nifedipine [Procardia XL] 30 mg Tablet Extended Release 24hr 30 mg PO QAM 14 Days Qty: 14 0RF labetalol 100 mg tablet 300 mg PO TID Date of admission: 01/19/24 16:49 Primary Care Provider: Jose R,Ranjan Admitting Provider: Ronald Aguilar Attending physician on admission: Ronald Aguilar Condition: Stable
[2024-01-24] MEDS: DOCUSATE SODIUM 100 MG CAPSULE PO (10:04)
[2024-01-24] MEDS: FLUoxetine HCL 10 MG CAPSULE PO (10:04)
[2024-01-24] MEDS: NIFEdipine 30 MG TAB.ER.24 PO (10:04)
[2024-01-24] MEDS: SIMETHICONE 80 MG TAB.CHEW PO (10:05)
[2024-01-24] MEDS: MULTIVIT/MIN/PREN/FOL AC/IRON TABLET 1 TAB PO (10:10)
--- NOTE | 2024-01-24 12:02 | PC.NURSE ---
1130 Introductions were made, then consulted with patient to assess needs related to . Discussed with mother her?plans to feed?her infant and the?experience so far. Mom is pumping without difficulties and says she has researched the information she needs to do so safely. Resources provided for inpatient and outpatient services with the feeding sheet, mom/baby guide and name written on the communication board. Mother voiced understanding of information and will call if there is a request for assistance. Reported to the Primary RN.
--- NOTE | 2024-01-24 14:27 | PC.NURSE ---
1030 Patient viewed the discharge video Mother [facility] Baby [facility], The First Two Weeks . Patient was given the opportunity and encouraged to ask questions. Patient verbalized understanding of information shared and has been given the mother/baby guide for home reference.
[2024-01-25 11:21] VITALS: BP 128/69; PULSE 78; RESP 18; TEMP 36.8; O2SAT 99
== END 2024-01-24 13:48 | disposition home or self-care (01) | DRG 788 ==
LOC: ANHLDR 01-20 09:35 → ANHOB2 01-24 08:57 → ANHLDR 01-25 08:42 → ANHOB2 01-25 08:42
PROVIDERS: Advanced Practice Midwife; Admitting Provider Obstetrics & Gynecology; Visit Provider Obstetrics & Gynecology
PROC: 10D00Z1 Extraction of Products of Conception, Low, Open Approach (ICD-10-PCS; CPT 59514; principal; 2024-01-21 00:40)
DX: O11.4 Pre-existing hypertension with pre-eclampsia, complicating childbirth (principal); Z37.0 Single live birth; Z3A.37 37 weeks gestation of pregnancy; O24.429 Gestational diabetes mellitus in childbirth, unspecified control; O99.214 Obesity complicating childbirth; E66.9 Obesity, unspecified; O99.344 Other mental disorders complicating childbirth; F98.8 Other specified behavioral and emotional disorders with onset usually occurring in childhood and adolescence; F32.A Depression, unspecified; O62.1 Secondary uterine inertia
CPT/HCPCS: 36415; 80053; 82948; 84550; 85025; 85055; 86592; 86850; 86900; 86901; 88307; A9270; J0456; J1580; J1815; J1885; J2274; J2405; J2590; J2795; J3010; J3475; J7120